=== PATIENT | female | born 1965 | race Caucasian/White ===

== ENCOUNTER 2019-09-06 17:58 | Observation (INO) ==
[2019-09-06 19:15] LABS: Basophils # 0.1 K/mcL (0.0-0.2); Basophils % 0.9 %; Eosinophils # 0.1 K/mcL (0.0-0.6); Eosinophils % 1.5 %; Hematocrit 44.3 % (35.3-44.9); Hemoglobin 15.7 g/dL (11.5-15.4); Immature Granulocytes % 0.6 % (0-4); Lymphocytes # 2.5 K/mcL (0.6-4.6); Lymphocytes % 35.8 %; Mean Corpuscular HGB Conc 35.4 g/dL (31.6-35.5); Mean Corpuscular Hemoglobin 31.9 pg (28.0-33.3); Mean Platelet Volume 10.9 fL (9.4-12.4); Monocytes # 0.7 K/mcL (0.0-1.3); Monocytes % 9.8 %; Neutrophils # 3.5 K/mcL (1.6-8.9); Platelet Count 212 K/mcL (140-400); Red Blood Count 4.92 M/mcL (3.82-4.97); Red Cell Distribution Width 13.2 % (11.5-14.5); Segmented Neutrophils % 51.4 %; White Blood Count 6.9 K/mcL (4.3-11.1)
[2019-09-06 19:15] LABS: VBG HCO3 20 mEq/L (21-27); VBG PCO2 38 mmHg (41-51); VBG PH 7.32 pH Units (7.32-7.42); VBG PO2 54 mmHg (25-50)
[2019-09-06] MEDS: 0.9 % Sodium Chloride 1,000 ML IVC SCH ×2 (19:23→20:33)
[2019-09-06 19:45] LABS: Bilirubin,Urine Negative (Negative); Blood,Urine Negative (Negative); Clarity,Urine Clear (Clear); Color,Urine Yellow (Yellow); Glucose,Urine (UA) >=1000 mg/dL (Normal); Ketones,Urine 80 mg/dL (Negative); Leukocyte Esterase,Urine Negative (Negative); Nitrite,Urine Negative (Negative); Protein,Urine Negative (Neg-Trace); Specific Gravity,Urine > 1.030 (1.010-1.025); Urobilinogen,Urine Normal (Normal)
[2019-09-06 19:48] LABS: BUN/Creatinine Ratio 15 (6-26); Blood Urea Nitrogen 9 mg/dL (6-20); Calcium 8.6 mg/dL (8.6-10.3); Carbon Dioxide 18 mEq/L (23-29); Chloride 98 mEq/L (98-107); Glucose 379 mg/dL (70-105); Osmolality,Calculated 286 (280-300); Potassium 3.6 mEq/L (3.5-5.1); Sodium 131 mEq/L (136-145); Troponin I < 0.03 ng/mL (< 0.04); eGFR For African Americans > 60 (> 60); eGFR For Non-African Americans > 60 (> 60)
[2019-09-06] MEDS ORDERED: 0.9 % Sodium Chloride w KCl 20 MEQ/1,000 ML MLS IVC SCH (20:15)
[2019-09-06] MEDS ORDERED: Insulin Human Regular 100 UNIT in 0.9 % Sodium Chloride 100 ML IVC SCH (20:15)
[2019-09-06] MEDS ORDERED: Insulin Regular, Human 100 UNIT/ML SQ ONE (21:05)
[2019-09-06] MEDS ORDERED: Insulin DETEMIR 100 UNIT/ML X5UNITS SQ ONE ×2 (21:57→22:10)
[2019-09-06] MEDS ORDERED: Dextrose Gel 15 GM/37.5 ML TUBE PO PRN ×2 (21:58)
[2019-09-06] MEDS ORDERED: *HR* Dextrose 50 % in Water (Syg) 50 ML SYRINGE IVP PRN (21:58)
[2019-09-06] MEDS ORDERED: Ondansetron 4 MG/2 ML VIAL IVP PRN (22:06)
[2019-09-06] MEDS ORDERED: Acetaminophen 325 MG TABLET PO PRN (22:06)
[2019-09-06 22:11] LABS: BUN/Creatinine Ratio 14 (6-26); Blood Urea Nitrogen 7 mg/dL (6-20); Carbon Dioxide 17 mEq/L (23-29); Chloride 105 mEq/L (98-107); Glucose 239 mg/dL (70-105); Osmolality,Calculated 284 (280-300); Phosphorous 1.8 mg/dL (2.7-4.5); Sodium 134 mEq/L (136-145); eGFR For African Americans > 60 (> 60); eGFR For Non-African Americans > 60 (> 60)
[2019-09-06] MEDS ORDERED: Ringers Solution, Lactated 1,000 ML IVC SCH (23:45)
[2019-09-06] MEDS ORDERED: Potassium Phosphate 44 MEQ in 0.9 % Sodium Chloride 250 ML IVPB ONE (23:50)
[2019-09-06] MEDS ORDERED: Calcium Gluconate 1gm/50mL 1 GM/50 ML BAG IVPB ONE (23:51)
[2019-09-07] MEDS ORDERED: SODIUM CHLORIDE 0.9% IVPB ONE ×2 (00:58→01:15)
[2019-09-07] MEDS ORDERED: LIDOCAINE MPF 1% IVPB ONE (00:58)
[2019-09-07] MEDS ORDERED: POTASSIUM PHOSPHATE IVPB ONE ×2 (00:58→01:15)
[2019-09-07] MEDS ORDERED: LIDOCAINE 1% IVPB ONE (01:15)
[2019-09-07 04:30] LABS: VBG HCO3 20 mEq/L (21-27); VBG PCO2 33 mmHg (41-51); VBG PO2 180 mmHg (25-50)
[2019-09-07 04:54] LABS: BUN/Creatinine Ratio 15 (6-26); Blood Urea Nitrogen 7 mg/dL (6-20); Calcium 7.2 mg/dL (8.6-10.3); Carbon Dioxide 18 mEq/L (23-29); Chloride 107 mEq/L (98-107); Glucose 216 mg/dL (70-105); Magnesium 1.9 mg/dL (1.6-2.6); Osmolality,Calculated 287 (280-300); Phosphorous 2.9 mg/dL (2.7-4.5); Potassium 3.3 mEq/L (3.5-5.1); Sodium 136 mEq/L (136-145); eGFR For African Americans > 60 (> 60); eGFR For Non-African Americans > 60 (> 60)
[2019-09-07 05:05] LABS: Thyroid Stimulating Hormone 3.026 mcIU/mL (0.340-5.600)
[2019-09-07 07:52] LABS: Estimated Average Glucose 427 mg/dl
[2019-09-07] MEDS: Insulin LISPRO 300 UNITS/3 ML VIAL SQ SCH ×3 (08:05→16:30)
[2019-09-07] MEDS ORDERED: Insulin LISPRO 300 UNITS/3 ML VIAL SQ SCH (21:00)
[2019-09-07] MEDS ORDERED: Insulin DETEMIR 100 UNIT/ML X5UNITS SQ SCH (21:00)
[2019-09-08] MEDS: Insulin LISPRO 300 UNITS/3 ML VIAL SQ SCH ×2 (08:26→12:30)
[2019-09-08 09:21] LABS: BUN/Creatinine Ratio 18 (6-26); Blood Urea Nitrogen 8 mg/dL (6-20); Calcium 8.2 mg/dL (8.6-10.3); Carbon Dioxide 25 mEq/L (23-29); Chloride 104 mEq/L (98-107); Glucose 216 mg/dL (70-105); Magnesium 1.9 mg/dL (1.6-2.6); Osmolality,Calculated 293 (280-300); Potassium 3.5 mEq/L (3.5-5.1); Sodium 139 mEq/L (136-145); eGFR For African Americans > 60 (> 60); eGFR For Non-African Americans > 60 (> 60)
[2019-09-08 11:14] VITALS: BP 137/67
== END 2019-09-08 16:06 | disposition home or self-care (01) ==
LOC: EMEROOARM 17:58 → 3BNU 17:58 → SUATTDRO 21:57 → 3BNU 22:13
PROVIDERS: ADMIT Internal Medicine; ATTEND Internal Medicine

== ENCOUNTER 2020-12-27 13:11 | Inpatient (IN) ==
[2020-12-27] MEDS ORDERED: 0.9 % Sodium Chloride 1,000 ML IVC ONE (14:12)
[2020-12-27 14:15] LABS: Red Cell Distribution Width 12.3 % (11.5-14.5)
[2020-12-27 14:16] LABS: Hematocrit 52.8 % (35.3-44.9); Hemoglobin 15.9 g/dL (11.5-15.4); Mean Corpuscular HGB Conc 30.1 g/dL (31.6-35.5); Mean Corpuscular Hemoglobin 30.5 pg (28.0-33.3); Mean Corpuscular Volume 101.1 fL (83.0-100.0); Mean Platelet Volume 11.6 fL (9.4-12.4); Monocytes # 3.4 K/mcL (0.0-1.3); Platelet Count 285 K/mcL (140-400); Red Blood Count 5.22 M/mcL (3.82-4.97)
[2020-12-27 14:26] LABS: White Blood Count 37.5 K/mcL (4.3-11.1)
[2020-12-27 14:26] LABS: VBG HCO3 3 mEq/L (21-27); VBG PCO2 25 mmHg (41-51); VBG PH 6.72 pH Units (7.32-7.42); VBG PO2 74 mmHg (25-50)
[2020-12-27 14:38] LABS: Eosinophils # 0.4 K/mcL (0.0-0.6); Lymphocytes # 2.3 K/mcL (0.6-4.6); Neutrophils # 31.1 K/mcL (1.6-8.9); Platelet Estimate Normal (Normal)
[2020-12-27 15:02] LABS: Alanine Aminotransferase 15 Units/L (7-52); Albumin 3.7 g/dL (3.5-5.7); Albumin/Globulin Ratio 1.2 (1.1-2.2); Alkaline Phosphatase 177 Units/L (34-104); Aspartate Amino Transferase 14 Units/L (13-39); BUN/Creatinine Ratio 26 (6-26); Bilirubin,Total 0.2 mg/dL (0.3-1.0); Blood Urea Nitrogen 37 mg/dL (6-20); Calcium 7.9 mg/dL (8.6-10.3); Carbon Dioxide < 4 mEq/L (23-29); Chloride 94 mEq/L (98-107); Globulin 3.1 g/dL (2.4-3.5); Glucose 884 mg/dL (70-105); Osmolality,Calculated 312 (280-300); Sodium 125 mEq/L (136-145); Total Protein 6.8 g/dL (6.4-8.9); Troponin I 0.03 ng/mL (< 0.04); eGFR For African Americans 47 (> 60); eGFR For Non-African Americans 39 (> 60)
[2020-12-27] MEDS ORDERED: Naloxone 0.4 MG/ML INJ IVP PRN (16:04)
[2020-12-27] MEDS ORDERED: *HR* Dextrose 50 % in Water (Vial) 50 ML VIAL IVP PRN (16:04)
[2020-12-27] MEDS ORDERED: Insulin Regular, Human 100 UNIT/ML IV PRN (16:04)
[2020-12-27] MEDS ORDERED: Acetaminophen 325 MG TABLET PO PRN (16:04)
[2020-12-27] MEDS: Insulin Human Regular 100 UNIT in 0.9 % Sodium Chloride 100 ML IVC SCH (16:12)
[2020-12-27] MEDS ORDERED: Insulin Human Regular 100 UNIT in 0.9 % Sodium Chloride 100 ML IVC SCH (16:15)
[2020-12-27 16:27] LABS: Bacteria,Urine Few per hpf (None-Few); Bilirubin,Urine Negative (Negative); Blood,Urine Moderate (Negative); Budding Yeast,Urine Few per hpf (None Seen); Clarity,Urine Clear (Clear); Color,Urine Colorless (Yellow); Glucose,Urine (UA) >=1000 mg/dL (Normal); Ketones,Urine 100 mg/dL (Negative); Leukocyte Esterase,Urine Negative (Negative); Mucus,Urine Few per lpf (None-Few); Nitrite,Urine Negative (Negative); PH,Urine 5.5 pH Units (5.0-8.0); Protein,Urine 70 mg/dL (Neg-Trace); Specific Gravity,Urine 1.023 (1.010-1.025); Squamous Epithelial Cell,Urine Few per hpf (None-Few); Urobilinogen,Urine Normal (Normal)
[2020-12-27] MEDS ORDERED: 0.9 % Sodium Chloride 1,000 ML ONE (16:50)
[2020-12-27] MEDS ORDERED: Albuterol 2.5 MG/3 ML NEBULIZER IH PRN (16:59)
[2020-12-27] MEDS ORDERED: Perflutren Lipid Microsphere 1.3 ML in 0.9 % Sodium Chloride 8.7 ML IVP PRN (17:17)
[2020-12-27 17:22] LABS: VBG HCO3 4 mEq/L (21-27); VBG PCO2 25 mmHg (41-51); VBG PH 6.79 pH Units (7.32-7.42); VBG PO2 102 mmHg (25-50)
[2020-12-27] MEDS: Azithromycin 500 MG in 0.9 % Sodium Chloride 250 ML IVPB SCH (17:36)
[2020-12-27] MEDS: 0.9 % Sodium Chloride w KCl 20 MEQ/1,000 ML MLS IVC SCH ×5 (17:36→23:05)
[2020-12-27] MEDS: Pantoprazole 40 MG VIAL IVP SCH (17:38)
[2020-12-27] MEDS: cefTRIAXone 1,000 MG in Water for inj. (sterile) 10 ML IVP SCH (17:39)
[2020-12-27 17:45] LABS: Calcium 7.6 mg/dL (8.6-10.3); Magnesium 2.4 mg/dL (1.6-2.6); Phosphorous 3.7 mg/dL (2.7-4.5); Potassium 5.2 mEq/L (3.5-5.1); Troponin I 0.05 ng/mL (< 0.04)
[2020-12-27] MEDS ORDERED: *HR* Heparin 5,000 UNIT/ML VIAL IVP PRN ×2 (17:46)
[2020-12-27] MEDS ORDERED: *HR* Heparin 5,000 UNIT/ML VIAL IVP ONE (17:46)
[2020-12-27] MEDS ORDERED: Heparin 25,000UNIT/250ML 1/2NS 25,000 UNIT/250 ML IV.SOLN IVC SCH (18:00)
[2020-12-27] MEDS: Ipratropium/Albuterol Neb 3 ML IH SCH ×2 (19:30→23:25)
[2020-12-27 20:48] LABS: VBG HCO3 5 mEq/L (21-27); VBG PCO2 23 mmHg (41-51); VBG PH 6.92 pH Units (7.32-7.42); VBG PO2 159 mmHg (25-50)
[2020-12-27 20:49] LABS: Prothrombin Time 11.3 Seconds (9.4-12.1)
[2020-12-27 20:53] LABS: Heparin anti-factor XA UFH 1.4 IU/mL (0.30-0.70)
[2020-12-27 20:54] LABS: VBG Ionized Calcium 0.94 mmol/L (1.15-1.35)
[2020-12-27 21:02] LABS: BUN/Creatinine Ratio 30 (6-26); Blood Urea Nitrogen 31 mg/dL (6-20); Calcium 7.8 mg/dL (8.6-10.3); Carbon Dioxide 4 mEq/L (23-29); Chloride 111 mEq/L (98-107); Glucose 406 mg/dL (70-105); Magnesium 2.2 mg/dL (1.6-2.6); Osmolality,Calculated 304 (280-300); Phosphorous 1.6 mg/dL (2.7-4.5); Potassium 4.6 mEq/L (3.5-5.1); Sodium 135 mEq/L (136-145); eGFR For African Americans > 60 (> 60); eGFR For Non-African Americans 54 (> 60)
[2020-12-27] MEDS: Ondansetron 4 MG/2 ML VIAL IVP PRN (23:04)
[2020-12-28] MEDS ORDERED: *HR* Heparin 5,000 UNIT/ML VIAL SQ SCH
[2020-12-28] MEDS: D5% in 0.45% NACL w KCl 20 MEQ/1,000 ML MLS IVC PRN ×5 (00:12→21:30)
[2020-12-28] MEDS: 0.9 % Sodium Chloride w KCl 20 MEQ/1,000 ML MLS IVC SCH ×11 (00:14→23:49)
[2020-12-28 00:37] LABS: BUN/Creatinine Ratio 29 (6-26); Blood Urea Nitrogen 27 mg/dL (6-20); Calcium 7.7 mg/dL (8.6-10.3); Carbon Dioxide 7 mEq/L (23-29); Chloride 118 mEq/L (98-107); Glucose 247 mg/dL (70-105); Magnesium 1.8 mg/dL (1.6-2.6); Osmolality,Calculated 295 (280-300); Phosphorous < 1.0 mg/dL (2.7-4.5); Potassium 4.7 mEq/L (3.5-5.1); Sodium 136 mEq/L (136-145); eGFR For African Americans > 60 (> 60); eGFR For Non-African Americans > 60 (> 60)
[2020-12-28] MEDS: Calcium Gluconate 1gm/50mL 1 GM/50 ML BAG IVPB PRN ×2 (01:40→19:43)
[2020-12-28] MEDS: Insulin Human Regular 100 UNIT in 0.9 % Sodium Chloride 100 ML IVC SCH ×5 (03:09→20:00)
[2020-12-28] MEDS: Ipratropium/Albuterol Neb 3 ML IH SCH ×5 (03:54→19:46)
[2020-12-28 04:40] LABS: VBG HCO3 12 mEq/L (21-27); VBG PCO2 31 mmHg (41-51); VBG PO2 206 mmHg (25-50)
[2020-12-28 05:02] LABS: Alanine Aminotransferase 13 Units/L (7-52); Albumin/Globulin Ratio 1.2 (1.1-2.2); Alkaline Phosphatase 124 Units/L (34-104); Aspartate Amino Transferase 16 Units/L (13-39); BUN/Creatinine Ratio 27 (6-26); Bilirubin,Indirect 0.3 mg/dL (0.0-1.0); Bilirubin,Total 0.3 mg/dL (0.3-1.0); Blood Urea Nitrogen 24 mg/dL (6-20); Calcium 7.8 mg/dL (8.6-10.3); Carbon Dioxide 11 mEq/L (23-29); Chloride 118 mEq/L (98-107); Globulin 2.6 g/dL (2.4-3.5); Glucose 291 mg/dL (70-105); Magnesium 1.5 mg/dL (1.6-2.6); Osmolality,Calculated 299 (280-300); Phosphorous < 1.0 mg/dL (2.7-4.5); Potassium 3.3 mEq/L (3.5-5.1); Sodium 137 mEq/L (136-145); Total Protein 5.6 g/dL (6.4-8.9); eGFR For African Americans > 60 (> 60); eGFR For Non-African Americans > 60 (> 60)
[2020-12-28 05:07] LABS: Basophils # 0.1 K/mcL (0.0-0.2); Basophils % 0.2 %; Hematocrit 42.3 % (35.3-44.9); Hemoglobin 14.4 g/dL (11.5-15.4); Lymphocytes # 1.3 K/mcL (0.6-4.6); Lymphocytes % 4.8 %; Mean Corpuscular Hemoglobin 30.4 pg (28.0-33.3); Mean Corpuscular Volume 89.2 fL (83.0-100.0); Mean Platelet Volume 11.4 fL (9.4-12.4); Monocytes # 1.4 K/mcL (0.0-1.3); Monocytes % 5.2 %; Platelet Count 204 K/mcL (140-400); Red Blood Count 4.74 M/mcL (3.82-4.97); Red Cell Distribution Width 12.2 % (11.5-14.5); Segmented Neutrophils % 87.8 %; White Blood Count 27.6 K/mcL (4.3-11.1)
[2020-12-28 05:09] LABS: Neutrophils # 24.2 K/mcL (1.6-8.9)
[2020-12-28] MEDS: Pantoprazole 40 MG VIAL IVP SCH ×2 (05:17→18:13)
[2020-12-28 05:21] LABS: Estimated Average Glucose 303 mg/dl; Hemoglobin A1C 12.2 %
[2020-12-28] MEDS: cefTRIAXone 1,000 MG in Water for inj. (sterile) 10 ML IVP SCH (08:16)
[2020-12-28] MEDS: Ondansetron 4 MG/2 ML VIAL IVP PRN (08:16)
[2020-12-28 09:30] LABS: BUN/Creatinine Ratio 26 (6-26); Blood Urea Nitrogen 21 mg/dL (6-20); Calcium 7.6 mg/dL (8.6-10.3); Carbon Dioxide 12 mEq/L (23-29); Chloride 117 mEq/L (98-107); Glucose 143 mg/dL (70-105); Osmolality,Calculated 289 (280-300); Phosphorous < 1.0 mg/dL (2.7-4.5); Sodium 137 mEq/L (136-145); eGFR For African Americans > 60 (> 60); eGFR For Non-African Americans > 60 (> 60)
[2020-12-28] MEDS ORDERED: Potassium Phosphate 44 MEQ in 0.9 % Sodium Chloride 250 ML IVPB ONE (09:31)
[2020-12-28 11:44] LABS: BUN/Creatinine Ratio 23 (6-26); Blood Urea Nitrogen 20 mg/dL (6-20); Calcium 7.5 mg/dL (8.6-10.3); Carbon Dioxide 14 mEq/L (23-29); Chloride 117 mEq/L (98-107); Glucose 112 mg/dL (70-105); Magnesium 1.9 mg/dL (1.6-2.6); Osmolality,Calculated 287 (280-300); Potassium 3.2 mEq/L (3.5-5.1); Sodium 137 mEq/L (136-145); eGFR For African Americans > 60 (> 60); eGFR For Non-African Americans > 60 (> 60)
[2020-12-28] MEDS ORDERED: *HR* Metoprolol 5 MG/5 ML VIAL IVP SCH (12:00)
[2020-12-28] MEDS: Metoprolol XL (24 HR) Succ 25 MG TAB.ER.24H PO SCH (13:30)
[2020-12-28] MEDS: Apixaban 5 MG TABLET PO SCH ×2 (14:06→19:47)
[2020-12-28] MEDS: Azithromycin 500 MG in 0.9 % Sodium Chloride 250 ML IVPB SCH (16:22)
[2020-12-28 16:58] LABS: BUN/Creatinine Ratio 20 (6-26); Blood Urea Nitrogen 17 mg/dL (6-20); Calcium 7.1 mg/dL (8.6-10.3); Carbon Dioxide 14 mEq/L (23-29); Chloride 113 mEq/L (98-107); Glucose 274 mg/dL (70-105); Magnesium 1.8 mg/dL (1.6-2.6); Osmolality,Calculated 287 (280-300); Phosphorous 2.3 mg/dL (2.7-4.5); Potassium 4.3 mEq/L (3.5-5.1); Sodium 133 mEq/L (136-145); eGFR For African Americans > 60 (> 60); eGFR For Non-African Americans > 60 (> 60)
[2020-12-28 17:59] LABS: VBG Ionized Calcium 0.84 mmol/L (1.15-1.35)
[2020-12-28 20:57] LABS: BUN/Creatinine Ratio 19 (6-26); Blood Urea Nitrogen 14 mg/dL (6-20); Calcium 6.5 mg/dL (8.6-10.3); Carbon Dioxide 14 mEq/L (23-29); Chloride 119 mEq/L (98-107); Glucose 183 mg/dL (70-105); Magnesium 1.8 mg/dL (1.6-2.6); Osmolality,Calculated 289 (280-300); Phosphorous 1.1 mg/dL (2.7-4.5); Potassium 3.3 mEq/L (3.5-5.1); Sodium 137 mEq/L (136-145); eGFR For African Americans > 60 (> 60); eGFR For Non-African Americans > 60 (> 60)
[2020-12-29] MEDS: Ipratropium/Albuterol Neb 3 ML IH SCH ×3 (00:11→07:59)
[2020-12-29 00:17] LABS: Basophils % 0.1 %; Hematocrit 36.1 % (35.3-44.9); Immature Granulocytes % 0.7 % (0-4); Lymphocytes # 1.3 K/mcL (0.6-4.6); Lymphocytes % 6.2 %; Mean Corpuscular HGB Conc 35.5 g/dL (31.6-35.5); Mean Corpuscular Hemoglobin 29.7 pg (28.0-33.3); Mean Corpuscular Volume 83.8 fL (83.0-100.0); Mean Platelet Volume 10.9 fL (9.4-12.4); Monocytes # 1.3 K/mcL (0.0-1.3); Monocytes % 6.1 %; Neutrophils # 18.2 K/mcL (1.6-8.9); Platelet Count 162 K/mcL (140-400); Red Blood Count 4.31 M/mcL (3.82-4.97); Red Cell Distribution Width 12.8 % (11.5-14.5); Segmented Neutrophils % 86.9 %
[2020-12-29 00:18] LABS: Hemoglobin 12.8 g/dL (11.5-15.4)
[2020-12-29 00:19] LABS: VBG Ionized Calcium 1.07 mmol/L (1.15-1.35)
[2020-12-29 00:33] LABS: BUN/Creatinine Ratio 18 (6-26); Blood Urea Nitrogen 13 mg/dL (6-20); Calcium 7.3 mg/dL (8.6-10.3); Carbon Dioxide 14 mEq/L (23-29); Chloride 115 mEq/L (98-107); Glucose 174 mg/dL (70-105); Osmolality,Calculated 282 (280-300); Potassium 3.9 mEq/L (3.5-5.1); Sodium 134 mEq/L (136-145); eGFR For African Americans > 60 (> 60); eGFR For Non-African Americans > 60 (> 60)
[2020-12-29] MEDS: Calcium Gluconate 1gm/50mL 1 GM/50 ML BAG IVPB PRN (00:35)
[2020-12-29 01:09] LABS: BUN/Creatinine Ratio 17 (6-26); Blood Urea Nitrogen 13 mg/dL (6-20); Calcium 7.2 mg/dL (8.6-10.3); Carbon Dioxide 14 mEq/L (23-29); Chloride 115 mEq/L (98-107); Glucose 171 mg/dL (70-105); Magnesium 2.6 mg/dL (1.6-2.6); Osmolality,Calculated 282 (280-300); Potassium 3.9 mEq/L (3.5-5.1); Sodium 134 mEq/L (136-145); eGFR For African Americans > 60 (> 60); eGFR For Non-African Americans > 60 (> 60)
[2020-12-29] MEDS: 0.9 % Sodium Chloride w KCl 20 MEQ/1,000 ML MLS IVC SCH ×5 (01:16→22:47)
[2020-12-29] MEDS: D5% in 0.45% NACL w KCl 20 MEQ/1,000 ML MLS IVC PRN ×2 (02:30→08:28)
[2020-12-29 03:52] LABS: Basophils % 0.1 %; Hematocrit 35.9 % (35.3-44.9); Hemoglobin 12.8 g/dL (11.5-15.4); Immature Granulocytes % 0.7 % (0-4); Lymphocytes # 1.4 K/mcL (0.6-4.6); Lymphocytes % 7.4 %; Mean Corpuscular HGB Conc 35.7 g/dL (31.6-35.5); Mean Corpuscular Volume 84.1 fL (83.0-100.0); Mean Platelet Volume 10.8 fL (9.4-12.4); Monocytes # 1.2 K/mcL (0.0-1.3); Monocytes % 6.3 %; Neutrophils # 16.4 K/mcL (1.6-8.9); Nucleated Red Blood Cells 0.1 /100 WBC (0); Platelet Count 168 K/mcL (140-400); Red Blood Count 4.27 M/mcL (3.82-4.97); Red Cell Distribution Width 13.1 % (11.5-14.5); Segmented Neutrophils % 85.5 %; White Blood Count 19.2 K/mcL (4.3-11.1)
[2020-12-29 04:08] LABS: BUN/Creatinine Ratio 15 (6-26); Blood Urea Nitrogen 11 mg/dL (6-20); Calcium 7.3 mg/dL (8.6-10.3); Carbon Dioxide 14 mEq/L (23-29); Chloride 115 mEq/L (98-107); Glucose 152 mg/dL (70-105); Magnesium 2.6 mg/dL (1.6-2.6); Osmolality,Calculated 280 (280-300); Phosphorous 2.3 mg/dL (2.7-4.5); Potassium 3.7 mEq/L (3.5-5.1); Sodium 134 mEq/L (136-145); eGFR For African Americans > 60 (> 60); eGFR For Non-African Americans > 60 (> 60)
[2020-12-29] MEDS ORDERED: Potassium Phosphate 44 MEQ in 0.9 % Sodium Chloride 250 ML IVPB PRN (04:53)
[2020-12-29] MEDS: Pantoprazole 40 MG VIAL IVP SCH (05:05)
[2020-12-29 05:41] LABS: VBG HCO3 16 mEq/L (21-27); VBG PCO2 33 mmHg (41-51); VBG PH 7.29 pH Units (7.32-7.42); VBG PO2 164 mmHg (25-50)
[2020-12-29 09:23] LABS: BUN/Creatinine Ratio 12 (6-26); Blood Urea Nitrogen 9 mg/dL (6-20); Calcium 7.3 mg/dL (8.6-10.3); Carbon Dioxide 17 mEq/L (23-29); Chloride 113 mEq/L (98-107); Glucose 166 mg/dL (70-105); Magnesium 2.4 mg/dL (1.6-2.6); Osmolality,Calculated 282 (280-300); Phosphorous 2.7 mg/dL (2.7-4.5); Potassium 4.2 mEq/L (3.5-5.1); Sodium 135 mEq/L (136-145); eGFR For African Americans > 60 (> 60); eGFR For Non-African Americans > 60 (> 60)
[2020-12-29] MEDS ORDERED: D5% in Water 1,000 ML IVC PRN ×2 (09:49→12:24)
[2020-12-29] MEDS ORDERED: *HR* Dextrose 50 % in Water (Vial) 50 ML VIAL IVP PRN ×2 (09:49→12:24)
[2020-12-29] MEDS ORDERED: Dextrose Gel 15 GM/37.5 ML TUBE PO PRN ×4 (09:49→12:24)
[2020-12-29] MEDS ORDERED: Insulin DETEMIR 100 UNIT/ML X5UNITS SUBQ SCH (10:00)
[2020-12-29] MEDS ORDERED: Ringers Solution, Lactated 1,000 ML IVC SCH (10:00)
[2020-12-29] MEDS ORDERED: Ipratropium/Albuterol Neb 3 ML IH PRN ×2 (10:24→12:24)
[2020-12-29] MEDS: cefTRIAXone 1,000 MG in Water for inj. (sterile) 10 ML IVP SCH (11:20)
[2020-12-29] MEDS ORDERED: Insulin LISPRO 300 UNITS/3 ML VIAL SUBQ SCH ×2 (11:30→21:00)
[2020-12-29] MEDS: Metoprolol XL (24 HR) Succ 25 MG TAB.ER.24H PO SCH (11:37)
[2020-12-29] MEDS: Apixaban 5 MG TABLET PO SCH ×2 (11:38→21:13)
[2020-12-29] MEDS ORDERED: Naloxone 0.4 MG/ML INJ IVP PRN (12:24)
[2020-12-29] MEDS ORDERED: Albuterol 2.5 MG/3 ML NEBULIZER IH PRN (12:24)
[2020-12-29] MEDS ORDERED: Ondansetron 4 MG/2 ML VIAL IVP PRN (12:24)
[2020-12-29] MEDS ORDERED: Acetaminophen 325 MG TABLET PO PRN (12:24)
[2020-12-29] MEDS: Ringers Solution, Lactated 1,000 ML IVC SCH (14:51)
[2020-12-29] MEDS: Azithromycin 500 MG in 0.9 % Sodium Chloride 250 ML IVPB SCH (17:49)
[2020-12-29] MEDS: Insulin LISPRO 300 UNITS/3 ML VIAL SUBQ SCH ×2 (18:03→21:14)
[2020-12-29 18:43] LABS: VBG Ionized Calcium 1.02 mmol/L (1.15-1.35)
[2020-12-29 19:00] LABS: BUN/Creatinine Ratio 11 (6-26); Blood Urea Nitrogen 7 mg/dL (6-20); Calcium 7.5 mg/dL (8.6-10.3); Carbon Dioxide 16 mEq/L (23-29); Chloride 111 mEq/L (98-107); Glucose 210 mg/dL (70-105); Magnesium 2.2 mg/dL (1.6-2.6); Osmolality,Calculated 282 (280-300); Phosphorous 1.7 mg/dL (2.7-4.5); Potassium 3.8 mEq/L (3.5-5.1); Sodium 134 mEq/L (136-145); eGFR For African Americans > 60 (> 60); eGFR For Non-African Americans > 60 (> 60)
[2020-12-29] MEDS: Insulin DETEMIR 100 UNIT/ML X5UNITS SUBQ SCH (21:13)
[2020-12-30] MEDS: Ringers Solution, Lactated 1,000 ML IVC SCH ×3 (01:52→18:57)
[2020-12-30] MEDS: Insulin LISPRO 300 UNITS/3 ML VIAL SUBQ SCH ×4 (08:10→20:04)
[2020-12-30] MEDS: Apixaban 5 MG TABLET PO SCH ×2 (10:02→20:03)
[2020-12-30] MEDS: cefTRIAXone 1,000 MG in Water for inj. (sterile) 10 ML IVP SCH (10:03)
[2020-12-30] MEDS: Pantoprazole 40 MG VIAL IVP SCH (10:03)
[2020-12-30] MEDS: Metoprolol XL (24 HR) Succ 25 MG TAB.ER.24H PO SCH (10:03)
[2020-12-30] MEDS: Insulin DETEMIR 100 UNIT/ML X5UNITS SUBQ SCH ×2 (10:28→20:04)
[2020-12-30 13:28] LABS: VBG Ionized Calcium 1.08 mmol/L (1.15-1.35)
[2020-12-30 13:34] LABS: Basophils % 0.2 %; Eosinophils % 0.1 %; Hematocrit 36.2 % (35.3-44.9); Hemoglobin 12.7 g/dL (11.5-15.4); Immature Granulocytes % 0.4 % (0-4); Lymphocytes # 2.1 K/mcL (0.6-4.6); Lymphocytes % 20.1 %; Mean Corpuscular HGB Conc 35.1 g/dL (31.6-35.5); Mean Corpuscular Hemoglobin 29.5 pg (28.0-33.3); Mean Corpuscular Volume 84.2 fL (83.0-100.0); Mean Platelet Volume 10.9 fL (9.4-12.4); Monocytes # 0.9 K/mcL (0.0-1.3); Monocytes % 8.7 %; Neutrophils # 7.2 K/mcL (1.6-8.9); Platelet Count 162 K/mcL (140-400); Red Cell Distribution Width 13.3 % (11.5-14.5); Segmented Neutrophils % 70.5 %; White Blood Count 10.2 K/mcL (4.3-11.1)
[2020-12-30 13:43] LABS: BUN/Creatinine Ratio 14 (6-26); Blood Urea Nitrogen 9 mg/dL (6-20); Calcium 7.6 mg/dL (8.6-10.3); Carbon Dioxide 23 mEq/L (23-29); Chloride 108 mEq/L (98-107); Glucose 169 mg/dL (70-105); Magnesium 1.9 mg/dL (1.6-2.6); Osmolality,Calculated 285 (280-300); Phosphorous 1.5 mg/dL (2.7-4.5); Potassium 3.4 mEq/L (3.5-5.1); Sodium 136 mEq/L (136-145); eGFR For African Americans > 60 (> 60); eGFR For Non-African Americans > 60 (> 60)
[2020-12-30] MEDS ORDERED: Potassium Phosphate 44 MEQ in 0.9 % Sodium Chloride 250 ML IVPB ONE (16:16)
[2020-12-30] MEDS ORDERED: Calcium Gluconate 1gm/50mL 1 GM/50 ML BAG IVPB ONE (16:16)
[2020-12-30] MEDS ORDERED: Magnesium Sulfate 1 GM/102 ML PIGGYBACK IVPB ONE (16:18)
[2020-12-30] MEDS: Azithromycin 500 MG in 0.9 % Sodium Chloride 250 ML IVPB SCH (16:23)
[2020-12-31] MEDS: Ringers Solution, Lactated 1,000 ML IVC SCH ×2 (04:31→16:10)
[2020-12-31] MEDS: cefTRIAXone 1,000 MG in Water for inj. (sterile) 10 ML IVP SCH (09:31)
[2020-12-31] MEDS: Pantoprazole 40 MG VIAL IVP SCH (09:33)
[2020-12-31] MEDS: Metoprolol XL (24 HR) Succ 25 MG TAB.ER.24H PO SCH (09:33)
[2020-12-31] MEDS: Apixaban 5 MG TABLET PO SCH ×2 (09:34→20:25)
[2020-12-31] MEDS: Insulin LISPRO 300 UNITS/3 ML VIAL SUBQ SCH ×4 (09:56→20:27)
[2020-12-31] MEDS: Insulin DETEMIR 100 UNIT/ML X5UNITS SUBQ SCH (10:05)
[2020-12-31 10:58] LABS: Basophils % 0.4 %; Eosinophils % 0.5 %; Hematocrit 36.1 % (35.3-44.9); Hemoglobin 12.9 g/dL (11.5-15.4); Immature Granulocytes % 0.5 % (0-4); Lymphocytes # 2.2 K/mcL (0.6-4.6); Lymphocytes % 27.7 %; Mean Corpuscular HGB Conc 35.7 g/dL (31.6-35.5); Monocytes # 0.6 K/mcL (0.0-1.3); Monocytes % 7.6 %; Neutrophils # 4.9 K/mcL (1.6-8.9); Platelet Count 183 K/mcL (140-400); Red Cell Distribution Width 13.2 % (11.5-14.5); Segmented Neutrophils % 63.3 %; White Blood Count 7.8 K/mcL (4.3-11.1)
[2020-12-31 11:04] LABS: VBG Ionized Calcium 1.09 mmol/L (1.15-1.35)
[2020-12-31 11:33] LABS: BUN/Creatinine Ratio 16 (6-26); Blood Urea Nitrogen 10 mg/dL (6-20); Calcium 7.6 mg/dL (8.6-10.3); Carbon Dioxide 25 mEq/L (23-29); Chloride 106 mEq/L (98-107); Glucose 214 mg/dL (70-105); Magnesium 2.1 mg/dL (1.6-2.6); Osmolality,Calculated 289 (280-300); Phosphorous 2.3 mg/dL (2.7-4.5); Potassium 3.5 mEq/L (3.5-5.1); Sodium 137 mEq/L (136-145); eGFR For African Americans > 60 (> 60); eGFR For Non-African Americans > 60 (> 60)
[2020-12-31] MEDS ORDERED: Calcium Gluconate 1gm/50mL 1 GM/50 ML BAG IVPB ONE (14:40)
[2020-12-31] MEDS: Azithromycin 500 MG in 0.9 % Sodium Chloride 250 ML IVPB SCH (17:29)
[2020-12-31] MEDS ORDERED: Insulin DETEMIR 100 UNIT/ML X5UNITS SUBQ SCH ×2 (21:00)
[2021-01-01] MEDS: Ringers Solution, Lactated 1,000 ML IVC SCH ×2 (03:00→11:59)
[2021-01-01 07:29] LABS: Basophils % 0.5 %; Eosinophils # 0.1 K/mcL (0.0-0.6); Eosinophils % 1.4 %; Hematocrit 36.1 % (35.3-44.9); Hemoglobin 12.2 g/dL (11.5-15.4); Immature Granulocytes % 0.9 % (0-4); Lymphocytes # 2.4 K/mcL (0.6-4.6); Lymphocytes % 30.2 %; Mean Corpuscular HGB Conc 33.8 g/dL (31.6-35.5); Mean Corpuscular Hemoglobin 29.6 pg (28.0-33.3); Mean Corpuscular Volume 87.6 fL (83.0-100.0); Mean Platelet Volume 11.2 fL (9.4-12.4); Monocytes # 0.8 K/mcL (0.0-1.3); Monocytes % 9.3 %; Neutrophils # 4.7 K/mcL (1.6-8.9); Platelet Count 232 K/mcL (140-400); Red Blood Count 4.12 M/mcL (3.82-4.97); Segmented Neutrophils % 57.7 %; White Blood Count 8.1 K/mcL (4.3-11.1)
[2021-01-01] MEDS ORDERED: Insulin DETEMIR 100 UNIT/ML X5UNITS SUBQ SCH (09:00)
[2021-01-01 09:13] LABS: BUN/Creatinine Ratio 15 (6-26); Blood Urea Nitrogen 8 mg/dL (6-20); Calcium 7.7 mg/dL (8.6-10.3); Carbon Dioxide 29 mEq/L (23-29); Chloride 106 mEq/L (98-107); Glucose 76 mg/dL (70-105); Magnesium 1.9 mg/dL (1.6-2.6); Osmolality,Calculated 289 (280-300); Potassium 3.1 mEq/L (3.5-5.1); Sodium 141 mEq/L (136-145); eGFR For African Americans > 60 (> 60); eGFR For Non-African Americans > 60 (> 60)
[2021-01-01] MEDS: Insulin LISPRO 300 UNITS/3 ML VIAL SUBQ SCH ×3 (09:21→16:00)
[2021-01-01] MEDS: Pantoprazole 40 MG VIAL IVP SCH (09:22)
[2021-01-01] MEDS: Metoprolol XL (24 HR) Succ 25 MG TAB.ER.24H PO SCH (09:22)
[2021-01-01] MEDS: Apixaban 5 MG TABLET PO SCH (09:22)
[2021-01-01] MEDS ORDERED: Magnesium Oxide 400 MG TABLET PO SCH (10:00)
[2021-01-01] MEDS ORDERED: E-Z-HD (BARIUM SULF) SUSPENSION PO ONE (10:54)
[2021-01-01] MEDS ORDERED: E-Z-PAQUE (BARIUM SULF) SUSP 1 BOTTLE PO ONE (10:54)
[2021-01-01 11:34] LABS: VBG Ionized Calcium 1.09 mmol/L (1.15-1.35)
[2021-01-01 15:25] VITALS: BP 154/82
[2021-01-02] MEDS ORDERED: Insulin DETEMIR 100 UNIT/ML X5UNITS SUBQ SCH (09:00)
== END 2021-01-01 17:43 | disposition home or self-care (01) | DRG 637 ==
LOC: ICNU 13:11 → EMEROOARM 13:11 → ICNU 16:29 → SUATTDRO 16:30 → ICNU 17:33 → 2ANU 12-29 13:17
PROVIDERS: ADMIT Pediatrics; ATTEND General Practice

== ENCOUNTER 2021-06-19 15:48 | Observation (INO) ==
[2021-06-19] MEDS ORDERED: Aspirin 81 MG TAB.CHEW PO ONE (15:52)
[2021-06-19] MEDS ORDERED: Nitroglycerin 0.4 MG TAB.SUBL SL PRN (15:52)
[2021-06-19 17:01] LABS: Basophils # 0.1 K/mcL (0.0-0.2); Basophils % 0.5 %; Eosinophils # 0.2 K/mcL (0.0-0.6); Eosinophils % 1.5 %; Hematocrit 43.3 % (35.3-44.9); Hemoglobin 14.8 g/dL (11.5-15.4); Immature Granulocytes % 0.3 % (0-4); Lymphocytes # 2.8 K/mcL (0.6-4.6); Lymphocytes % 28.5 %; Mean Corpuscular HGB Conc 34.2 g/dL (31.6-35.5); Mean Corpuscular Hemoglobin 30.8 pg (28.0-33.3); Mean Corpuscular Volume 90.2 fL (83.0-100.0); Mean Platelet Volume 11.2 fL (9.4-12.4); Monocytes # 0.7 K/mcL (0.0-1.3); Monocytes % 6.8 %; Neutrophils # 6.1 K/mcL (1.6-8.9); Platelet Count 265 K/mcL (140-400); Red Cell Distribution Width 12.7 % (11.5-14.5); Segmented Neutrophils % 62.4 %; White Blood Count 9.8 K/mcL (4.3-11.1)
[2021-06-19 17:19] LABS: BUN/Creatinine Ratio 28 (6-26); Blood Urea Nitrogen 22 mg/dL (6-20); Calcium 8.3 mg/dL (8.6-10.3); Carbon Dioxide 25 mEq/L (23-29); Chloride 106 mEq/L (98-107); Glucose 310 mg/dL (70-105); Osmolality,Calculated 299 (280-300); Potassium 3.8 mEq/L (3.5-5.1); Sodium 137 mEq/L (136-145); eGFR For African Americans > 60 (> 60); eGFR For Non-African Americans > 60 (> 60)
[2021-06-19 17:26] LABS: Troponin I < 0.03 ng/mL (< 0.04)
[2021-06-19 17:30] LABS: Platelet Estimate Normal (Normal); Reactive Lymphocytes Present (Not Present)
[2021-06-19 17:31] LABS: Toxic Granulation Present (Not Present)
[2021-06-19] MEDS ORDERED: Naloxone 0.4 MG/ML INJ IVP PRN (18:01)
[2021-06-19] MEDS ORDERED: Ondansetron 4 MG/2 ML VIAL IVP PRN (18:01)
[2021-06-19] MEDS ORDERED: Albuterol 2.5 MG/3 ML NEBULIZER IH PRN (18:04)
[2021-06-19] MEDS ORDERED: Dextrose Gel 15 GM/37.5 ML TUBE PO PRN ×2 (18:05)
[2021-06-19] MEDS ORDERED: *HR* Dextrose 50 % in Water (Vial) 50 ML VIAL IVP PRN (18:05)
[2021-06-19] MEDS ORDERED: D5% in Water 1,000 ML IVC PRN (18:05)
[2021-06-19] MEDS ORDERED: Cyanocobalamin (B-12) 1,000 MCG/ML VIAL IM SCH (18:15)
[2021-06-19] MEDS: Apixaban 5 MG TABLET PO SCH (23:29)
[2021-06-20 01:27] LABS: Basophils # 0.1 K/mcL (0.0-0.2); Basophils % 0.5 %; Eosinophils # 0.2 K/mcL (0.0-0.6); Hematocrit 44.1 % (35.3-44.9); Hemoglobin 14.8 g/dL (11.5-15.4); Immature Granulocytes % 0.3 % (0-4); Lymphocytes # 3.6 K/mcL (0.6-4.6); Lymphocytes % 36.7 %; Mean Corpuscular HGB Conc 33.6 g/dL (31.6-35.5); Mean Corpuscular Hemoglobin 30.1 pg (28.0-33.3); Mean Corpuscular Volume 89.6 fL (83.0-100.0); Mean Platelet Volume 10.6 fL (9.4-12.4); Monocytes # 0.8 K/mcL (0.0-1.3); Monocytes % 8.4 %; Neutrophils # 5.1 K/mcL (1.6-8.9); Platelet Count 239 K/mcL (140-400); Red Blood Count 4.92 M/mcL (3.82-4.97); Red Cell Distribution Width 12.9 % (11.5-14.5); Segmented Neutrophils % 52.1 %; White Blood Count 9.7 K/mcL (4.3-11.1)
[2021-06-20 01:36] LABS: Prothrombin Time 11.2 Seconds (9.4-12.1)
[2021-06-20 01:38] LABS: Activated Partial Thrombo Time 31.5 Seconds (26.0-36.0)
[2021-06-20 01:49] LABS: BUN/Creatinine Ratio 28 (6-26); Blood Urea Nitrogen 18 mg/dL (6-20); Calcium 8.3 mg/dL (8.6-10.3); Carbon Dioxide 25 mEq/L (23-29); Chloride 108 mEq/L (98-107); Glucose 129 mg/dL (70-105); Magnesium 1.9 mg/dL (1.6-2.6); Osmolality,Calculated 294 (280-300); Phosphorous 3.4 mg/dL (2.7-4.5); Potassium 3.6 mEq/L (3.5-5.1); Sodium 140 mEq/L (136-145); Troponin I < 0.03 ng/mL (< 0.04); eGFR For African Americans > 60 (> 60); eGFR For Non-African Americans > 60 (> 60)
[2021-06-20] MEDS ORDERED: Regadenoson 0.4 MG/5 ML SYRINGE IVP ONE (06:26)
[2021-06-20] MEDS ORDERED: lisinopriL 10 MG TABLET PO SCH (09:00)
[2021-06-20] MEDS: Apixaban 5 MG TABLET PO SCH (09:59)
[2021-06-20] MEDS: Insulin LISPRO 300 UNITS/3 ML VIAL SUBQ SCH ×2 (10:02→13:20)
[2021-06-20 11:20] VITALS: BP 135/80; PULSE 62; TEMP 98; O2SAT 94
== END 2021-06-20 16:25 | disposition home or self-care (01) ==
LOC: 3NENU 15:48 → EMEROOARM 15:48 → SUATTDRO 19:23 → 3NENU 21:10
PROVIDERS: ADMIT Pharmacist; ATTEND Internal Medicine